=== PATIENT | male | born 1990 | race African-American/Black ===

== ENCOUNTER 2016-12-05 09:09 | Emergency (ER) | payer MEDICAID ==
[2016-12-05 10:03] VITALS: BP 134/77
--- NOTE | 2016-12-05 10:10 | UC ---
Respiratory Complaint HPI - HPI Summary HPI Summary: First starting getting sick with cough and chills (reports fever of 107) 2 weeks ago. Was sick for a week, then felt like he was getting better and went back to work for 2 days and since 3 days ago is feeling much worse again with chills, harsh cough, and night sweats. Denies wheezing or trouble breathing. - History of Current Complaint Chief Complaint: UCRespiratory Stated Complaint: SINUS ISSUE CONGESTION Time Seen by Provider: 12/05/16 10:00 Hx Obtained From: Patient Onset/Duration: Gradual Onset, Lasting Weeks Timing: Constant Severity Initially: Moderate Severity Currently: Moderate Character: Cough: Nonproductive Aggravating Factors: Deep Breaths Alleviating Factors: Upright Position Associated Signs And Symptoms: Positive: Chills, Nasal Congestion. Negative: Hemoptysis - Allergies/Home Medications Allergies/Adverse Reactions: Allergies Allergy/AdvReac Type Severity Reaction Status Date / Time No Known Allergies Allergy Verified 12/05/16 09:53 PMH/Surg Hx/FS Hx/Imm Hx Previously Healthy: Yes - Surgical History Surgical History: None - Family History Known Family History: Positive: None - Social History Occupation: Employed Full-time Alcohol Use: Rare Alcohol Amount: 6PK BEER Substance Use Type: None Substance Use Comment - Amount & Last Used: occassionally Smoking Status (MU): Light Every Day Tobacco Smoker Type: Cigars Household Exposure Type: Cigars - Immunization History Most Recent Influenza Vaccination: 2013 Most Recent Tetanus Shot: patient unsure Review of Systems Constitutional: Chills Skin: Negative Eyes: Negative ENT: Negative Respiratory: Cough Cardiovascular: Negative Gastrointestinal: Negative Genitourinary: Negative Motor: Negative Neurovascular: Negative Musculoskeletal: Negative Neurological: Negative Psychological: Negative All Other Systems Reviewed And Are Negative: Yes Physical Exam Triage Information Reviewed: Yes Appearance: Well-Appearing, No Pain Distress, Well-Nourished Vital Signs: Initial Vital Signs Temp 99.7 F 12/05/16 09:48 Pulse Ox 100 12/05/16 09:48 Vital Signs Reviewed: Yes Eye Exam: Normal Eyes: Positive: Conjunctiva Clear ENT: Positive: Hearing grossly normal, Nasal congestion, TMs normal Dental Exam: Normal Neck exam: Normal Neck: Positive: Supple, Nontender, No Lymphadenopathy Respiratory Exam: Other - freq dry cough Respiratory: Positive: Lungs clear, Normal breath sounds, No respiratory distress Cardiovascular Exam: Normal Cardiovascular: Positive: RRR, No Murmur Musculoskeletal Exam: Normal Neurological Exam: Normal Psychological Exam: Normal Skin Exam: Normal UC Diagnostic Evaluation - Laboratory O2 Sat by Pulse Oximetry: 100 Respiratory Course/Dx - Differential Dx/Diagnosis Provider Diagnoses: Acute bronchitis with secondary bacterial bronchitis Discharge - Discharge Plan Condition: Stable Disposition: HOME Prescriptions: Albuterol HFA INHALER* [Ventolin HFA Inhaler*] 1 - 2 puff INH Q4H PRN #1 mdi PRN Reason: wheeze, cough Azithromycin TAB* [Zithromax TAB*] 250 mg PO SEE INSTRUCTIONS #6 tab Benzonatate CAP* [Tessalon CAP*] 100 mg PO TID #30 cap Patient Education Materials: Acute Bronchitis (ED) Forms: *Work Release Referrals: Edmar Santos MD [Primary Care Provider] - Additional Instructions: Though the vast majority of bronchitis is viral, the course of your illness is suspicious for a bacterial complication, which is why I am treating you with an antibiotic. Increase your fluid intake. A cool mist humidifier may make your lungs more comfortable. An expectorant (cough medicine that loosens phlegm) can help. If you smoke, STOP!!! Recovery from bronchitis can be somewhat slow, but you should not have any significant worsening or new fevers. As long as you can breathe easily and you continue to have steady improvement, it is not important how many days it takes you to get better. Call or return if you develop increasing fever, shortness of breath, chest pain , bloody sputum, or otherwise worsen. If you have not improved at all after several days, contact your primary care physician or return here.
--- NOTE | 2016-12-05 10:35 | RAD ---
INDICATION: Cough. Chills. Fever. COMPARISON: None TECHNIQUE: PA and lateral dual-energy views were obtained. FINDINGS: Bones/Soft Tissues: There are no acute bony findings. Cardiomediastinal: The cardiomediastinal silhouette is normal. Lungs: There are no infiltrates. Pleura: There are no pleural effusions. Other: None IMPRESSION: NORMAL CHEST.
== END 2016-12-05 11:10 | disposition home or self-care (01) ==
LOC: UCEAST 09:09
DX: J20.8 Acute bronchitis due to other specified organisms (principal); F17.290 Nicotine dependence, other tobacco product, uncomplicated
CPT/HCPCS: 71020; 99212; G0463

== ENCOUNTER → 2017-04-24 17:40 | Emergency (ER) | payer MEDICAID, OTHER ==
[~2017-04-24 17:40] MED LIST: Penicillin VK TAB* 250 MG PO ONE
[2017-04-24 17:47] VITALS: BP 130/84
--- NOTE | 2017-04-24 18:27 | ED ---
Throat Pain/Nasal Congestion - HPI Summary HPI Summary: 27M presents with dental pain that has gotten worst over the past couple days. He states he had dental work on the other side and was suppose to have the teeth that are hurting him removed then but they forgot. He has been in contact with his dentist to try and get an appointment to get the teeth removed. He states he had a filling at tooth 20 but that it fell out a month ago. He states over the past couple days he has noticed some swelling to the area. He denies any fever, chest pain, SOB, or difficulty swallowing. He denies any recent antibiotic usage. He has been using ibuprofen for his pain. - History of Current Complaint Chief Complaint: EDDentalPain Time Seen by Provider: 04/24/17 17:55 - Allergies/Home Medications Allergies/Adverse Reactions: Allergies Allergy/AdvReac Type Severity Reaction Status Date / Time No Known Allergies Allergy Verified 12/05/16 09:53 PMH/Surg Hx/FS Hx/Imm Hx Endocrine/Hematology History: Denies: Hx Anticoagulant Therapy Cardiovascular History: Denies: Hx Hypertension Psychiatric History: Denies: Hx Eating Disorder, Hx of Violent Episodes Against Others Infectious Disease History: No Infectious Disease History: Denies: Hx Clostridium Difficile, Hx Hepatitis, Hx Human Immunodeficiency Virus (HIV), Hx of Known/Suspected MRSA, Hx Shingles, Hx Tuberculosis, Hx Known/ Suspected VRE, Hx Known/Suspected VRSA, History Other Infectious Disease, Traveled Outside the [place] in Last 30 Days - Family History Known Family History: Positive: None Negative: Cardiac Disease - Social History Alcohol Use: Occasionally Alcohol Amount: 6PK BEER Hx Substance Use: Yes Substance Use Type: Reports: Marijuana Substance Use Comment - Amount & Last Used: 3 days Smoking Status (MU): Light Every Day Tobacco Smoker Type: Cigars Review of Systems Negative: Fever Positive: Dental Pain Negative: Chest Pain Negative: Shortness Of Breath All Other Systems Reviewed And Are Negative: Yes Physical Exam Triage Information Reviewed: Yes Vital Signs On Initial Exam: Initial Vitals Temp Pulse Resp BP Pulse Ox 98.6 F 67 18 130/84 100 04/24/17 17:44 04/24/17 17:44 04/24/17 17:44 04/24/17 17:44 04/24/17 17:44 Vital Signs Reviewed: Yes Appearance: Positive: Well-Appearing Skin: Positive: Warm, Dry Head/Face: Positive: Normal Head/Face Inspection Eyes: Positive: Normal, EOMI, DANIELA, Conjunctiva Clear ENT: Positive: Normal ENT inspection, Pharynx normal, TMs normal Dental: Positive: Percussion Tenderness @ - 17 and 20, Gross Decay/Caries @ - 17 and 20, Dental Fracture @ - 20 Neck: Positive: Supple, Nontender, No Lymphadenopathy Respiratory/Lung Sounds: Positive: Clear to Auscultation, Breath Sounds Present Cardiovascular: Positive: Normal, RRR - Pamela Coma Scale Coma Scale Total: 15 Diagnostics - Vital Signs Vital Signs Temp Pulse Resp BP Pulse Ox 04/24/17 18:05 98.6 F 67 18 130/84 100 04/24/17 17:44 98.6 F 67 18 130/84 100 - Laboratory Lab Statement: Any lab studies that have been ordered have been reviewed, and results considered in the medical decision making process. EENT Course/Dx - Course Course Of Treatment: 27M presents with dental pain that has gotten worst over the past couple days. He states he had a filling at tooth 20 but that it fell out a month ago. He states over the past couple days he has noticed some swelling to the area. He denies any fever, chest pain, SOB, or difficulty swallowing. on exam tooth 20 and 17 and tender and have cavities present. some swelling noted along jaw line but no definitive abscess felt. no submandibular tenderness. will treat with PCN and told to follow up with dentist. patient understands and agrees with plan. - Differential Diagnoses Differential Diagnoses: Dental Abscess, Dental Caries, Fractured Tooth - Diagnoses Provider Diagnoses: Dental infection Discharge - Discharge Plan Condition: Good Disposition: HOME Prescriptions: Penicillin VK TAB* [Penicillin VK 250 mg Tab*] 500 mg PO QID #27 tab Patient Education Materials: Toothache (ED) Referrals: Edmar Santos MD [Primary Care Provider] - Additional Instructions: Take antibiotics: 4 times a day for 7 days, first dose given in ED Use ibuprofen every 6 hours Avoid hard, crunchy food until seen by dentist Follow up with dentist as soon as possible Return to ED if develop fever, shortness of breath, or chest pain or any new or worsening symptoms Images - Images Dental: 1 - [facility] 2 - fractured
== END | disposition home or self-care (01) ==
LOC: ED 17:40
DX: F12.90 Cannabis use, unspecified, uncomplicated (principal); F17.210 Nicotine dependence, cigarettes, uncomplicated
CPT/HCPCS: 99282; A9270-GY

== ENCOUNTER 2018-03-09 15:08 | Emergency (ER) | payer OTHER ==
[2018-03-09 17:38] VITALS: BP 0/0
== END 2018-03-09 17:38 | disposition left against medical advice (07) ==
LOC: ED 15:08
DX: M54.9 Dorsalgia, unspecified (principal); Z53.21 Procedure and treatment not carried out due to patient leaving prior to being seen by health care provider
CPT/HCPCS: 99282

== ENCOUNTER 2018-09-15 15:29 | Emergency (ER) | payer SELFPAY ==
--- NOTE | 2018-09-15 15:42 | UC ---
Lower Extremity/Ankle HPI - HPI Summary HPI Summary: 28 y/o male presents to the urgent care c/o RT foot pain specially at the base of RT great toe w/ swelling and bruising s/p kicking a desk out of anger last night. Pt report she then went to a club, he was walking then he developed severe great toe pain radiating to his mid foot. he applied ice and took Tylenol PO. this morning when he wake up, his great toe has a lot of swelling and bruising. Pain is 9/10 w/ mild numbness at the base of great toe and decrease ROM. Pa denies fever, SOB, calf pain, abdominal pain, N/v/D., no Hx of previous injury. - History of Current Complaint Stated Complaint: FOOT INJURY Time Seen by Provider: 09/15/18 15:41 Hx Obtained From: Patient Onset/Duration: Sudden Onset, Lasting Days - 1 day, Still Present, Worse Since - today Severity Initially: Severe Severity Currently: Moderate Pain Intensity: 9 Pain Scale Used: 0-10 Numeric Aggravating Factor(s): Standing, Ambulation Alleviating Factor(s): Rest, Elevation, Ice, OTC Meds - tylenol PO Able to Bear Weight: Yes - Risk Factors Gout Risk Factors: Negative DVT Risk Factors: Negative Septic Arthritis Risk Factor: Negative - Allergies/Home Medications Allergies/Adverse Reactions: Allergies Allergy/AdvReac Type Severity Reaction Status Date / Time No Known Allergies Allergy Verified 09/15/18 15:44 PMH/Surg Hx/FS Hx/Imm Hx Previously Healthy: Yes - Pt denies PMHX Other History Of: Negative For: Anticoagulant Therapy - Surgical History Surgical History: None - Family History Known Family History: Positive: Hypertension Negative: Cardiac Disease - Social History Occupation: Employed Full-time Lives: With Family Alcohol Use: Occasionally Alcohol Amount: 6PK BEER Substance Use Type: Marijuana Substance Use Comment - Amount & Last Used: 3 days Smoking Status (MU): Light Every Day Tobacco Smoker Type: Cigars Household Exposure Type: Cigars - Immunization History Most Recent Influenza Vaccination: 2013 Most Recent Tetanus Shot: patient unsure Review of Systems All Other Systems Reviewed And Are Negative: Yes Constitutional: Positive: Negative Skin: Positive: Bruising - w/ swelling at the base of the RT great toe Eyes: Positive: Negative ENT: Positive: Negative Respiratory: Positive: Negative Cardiovascular: Positive: Negative Gastrointestinal: Positive: Negative Genitourinary: Positive: Negative Motor: Positive: Negative Neurovascular: Positive: Negative Musculoskeletal: Positive: Decreased ROM - Rt great toe, Other: - Rt foot pain s /p injury Neurological: Positive: Negative Psychological: Positive: Negative Is Patient Immunocompromised?: No Physical Exam - Summary Physical Exam Summary: Vital Signs Reviewed: Yes General : well developed, well nourished male w/o any apparent distress Eyes: Positive: Conjunctiva Clear - PERRLA, EOMI ENT: Positive: Normal ENT inspection, Hearing grossly normal, Pharynx normal, TMs normal Neck: Positive: Supple, Nontender, No Lymphadenopathy Respiratory: Positive: Chest non-tender, Lungs clear, Normal breath sounds, No respiratory distress Cardiovascular: Positive: RRR, No Murmur, Pulses Normal Abdomen Description: Positive: Nontender, No Organomegaly, Soft. Negative: CVA Tenderness (R), CVA Tenderness (L) Bowel Sounds: Positive: Present Musculoskeletal: RT Foot/Toes: Pt is able to bear weight but ambulate with limping. RT foot : positive soft tissue swelling, bruising and ecchymosis over the Rt first great toe and first MTPJ, no erythema, no lesions, ulcers or break in skin integrity. The R foot is without obvious asymmetry or deformity when compared to the L foot. No bony step-off, tenderness to palpation over the first great toe and and point tenderness over the dorsal side of mid foot. , no tenderness of hindfoot, Decrease plantar/dorsiflexion, inversion/ eversion due to pain. Distal motor and neurovascular status are intact. Neurological Exam: Normal Psychological Exam: Normal Skin Exam: Normal Triage Information Reviewed: Yes Lower Extremity Course/Dx - Course Course Of Treatment: 28 y/o male presents to the urgent care c/o RT foot pain specially at the base of RT great toe w/ swelling and bruising s/p kicking a desk out of anger last night. Pt report she then went to a club, he was walking then he developed severe great toe pain radiating to his mid foot. he applied ice and took Tylenol PO. this morning when he wake up, his great toe has a lot of swelling and bruising. Pain is 9/10 w/ mild numbness at the base of great toe and decrease ROM. Pa denies fever, SOB, calf pain, abdominal pain, N/v/D., no Hx of previous injury. Hx obtained. RT foot X-ray ordered, Impression: grossly nondisplaced oblique sagital fracture of the first proximal phlanx extending to the first MTPJ.no dislocation. Pt's foot immobilized with dex- bandage and given a CAM boot to avoid flexion.Pt is neurovascular intact. Advised RICE, and Rx ibuprofen PO for pain and advised to f/u with Orthopedic DR Gautam for further evaluation and treatment on his fracture. Pt understood and agreed with D/C instructions - Differential Dx/Diagnosis Differential Diagnosis/HQI/PQRI: Arthritis, Contusion, Fracture (Closed), Sprain , Strain, Tendonitis Provider Diagnosis: Fracture of great toe of right foot, Foot pain, right - Physician Notifications Discussed Patient Care With: Júnior Coker - DR coker agreed w/ Pt's plan of care. Discharge - Sign-Out/Discharge Documenting (check all that apply): Patient Departure - d/c home All imaging exams completed and their final reports reviewed: Yes - Discharge Plan Condition: Stable Disposition: HOME Prescriptions: Ibuprofen TAB* [Motrin TAB* 800 MG] 800 mg PO Q6H PRN #30 tab PRN Reason: Pain Patient Education Materials: Toe Fracture (ED) Forms: *Work Release Referrals: Edmar Santos MD [Primary Care Provider] - 2 Days Samaria Gautam MD [Medical Doctor] - 1 Day Additional Instructions: 1-Please take medications after meals as directed to alleviate pain and swelling. 2-Please apply ice, keep your foot immobilized with the Dex bandage and CAM boot. Avoid strenuous exercise or standing for long periods of time. Elevate your foot. 3- Please f/u with Orthopedic Dr Gautam for further evaluation and treatment on your RT great toe fracture. - Billing Disposition and Condition Condition: STABLE Disposition: Home
[2018-09-15 15:44] VITALS: BP 131/75
[2018-09-15] MEDS ORDERED: Ibuprofen TAB* 400 MG PO ONE (15:59)
== END 2018-09-15 16:43 | disposition home or self-care (01) ==
LOC: UCEAST 15:29
DX: S92.414A Nondisplaced fracture of proximal phalanx of right great toe, initial encounter for closed fracture (principal); W22.8XXA Striking against or struck by other objects, initial encounter; Y92.9 Unspecified place or not applicable; F17.290 Nicotine dependence, other tobacco product, uncomplicated
CPT/HCPCS: 99213; A9270-GY; G0463

== ENCOUNTER 2019-06-29 13:48 | Emergency (ER) | payer MEDICAID ==
[2019-06-29 13:58] VITALS: BP 135/82
[2019-06-29] MEDS ORDERED: Ibuprofen TAB* 400 MG PO ONE (14:09)
--- NOTE | 2019-06-29 14:13 | UC ---
UC Dental HPI - HPI Summary HPI Summary: started 2 weeks ago with R lower dental pain, has not seen Dentist today is so painful he "cannot stand it." also notes R facial swelling. has been taking OTC ibuprofen for 2 weeks and no better last dose was yesterday - History of Current Complaint Chief Complaint: UCDentalProblem Stated Complaint: DENTAL PAIN Time Seen by Provider: 06/29/19 13:56 Hx Obtained From: Patient Onset/Duration: Gradual Onset Severity: Severe Pain Intensity: 10 Aggravating Factor(s): Heat, Cold, Chewing Alleviating Factor(s): Nothing - Allergies/Home Medications Allergies/Adverse Reactions: Allergies Allergy/AdvReac Type Severity Reaction Status Date / Time No Known Allergies Allergy Verified 06/29/19 13:58 Home Medications: Home Medications Ibuprofen TAB* [Motrin TAB* 800 MG] 1,000 mg PO Q6H PRN 06/29/19 [History Confirmed 06/29/19] PMH/Surg Hx/FS Hx/Imm Hx Previously Healthy: Yes Other History Of: Negative For: Anticoagulant Therapy - Surgical History Surgical History: None - Family History Known Family History: Positive: None, Hypertension Negative: Cardiac Disease - Social History Occupation: Employed Full-time Lives: With Family Alcohol Use: Occasionally Alcohol Amount: 6PK BEER Substance Use Type: None Substance Use Comment - Amount & Last Used: 3 days Smoking Status (MU): Light Every Day Tobacco Smoker Type: Cigars Household Exposure Type: Cigars Cessation Counseling: Patient Advised to Stop - Immunization History Most Recent Influenza Vaccination: 2013 Most Recent Tetanus Shot: patient unsure Review of Systems All Other Systems Reviewed And Are Negative: Yes Constitutional: Positive: Negative ENT: Positive: Dental Pain Respiratory: Positive: Negative Cardiovascular: Positive: Negative Gastrointestinal: Positive: Negative. Negative: Vomiting, Nausea Neurological: Positive: Negative Psychological: Positive: Negative Is Patient Immunocompromised?: No Physical Exam Triage Information Reviewed: Yes Appearance: Well-Nourished, Pain Distress Vital Signs: Initial Vital Signs Temp 98.7 F 06/29/19 13:55 Pulse 79 06/29/19 13:55 Resp 18 06/29/19 13:55 BP 135/82 06/29/19 13:55 Pulse Ox 100 06/29/19 13:55 Vital Signs Reviewed: Yes ENT Exam: Normal Dental: Positive: Gross Decay/Caries @ - open tex R 3rd molar with swollen surrounding gum, no drainage. Negative: Cervical Lymphadenopathy Respiratory Exam: Normal Respiratory: Positive: Lungs clear Cardiovascular Exam: Normal Cardiovascular: Positive: RRR Psychological Exam: Normal Skin Exam: Normal Dental Complaint Course/Dx - Course Course Of Treatment: Patient is driving himself home - will get Tylenol #3 at pharmacy - Differential Dx/Diagnosis Provider Diagnosis: Dental abscess Discharge ED - Sign-Out/Discharge Documenting (check all that apply): Patient Departure All imaging exams completed and their final reports reviewed: No Studies - Discharge Plan Condition: Stable Disposition: HOME Prescriptions: Acetaminop/Codeine 30 MG TAB* [Tylenol/Codeine 30 MG TAB*] 1 - 2 tab PO Q6H PRN #24 tab MDD 8 PRN Reason: Pain - Severe Penicillin V Potassium 500 mg PO BID #20 tablet Patient Education Materials: Dental Abscess (ED) Forms: *Work Release Referrals: Edmar Santos MD [Primary Care Provider] - Additional Instructions: take ibuprofen 600-800mg every 6-8 hours as needed for pain use Tylenol with codeine as prescribed - do not drink alcohol or drive when using start antibiotic today follow-up with dentist as soon as possible - Billing Disposition and Condition Condition: STABLE Disposition: Home - Attestation Statements Provider Attestation: I was available for consult. This patient was seen by the FRANCIA. The patient was not presented to , seen by or examined by me -Brenda Albrecht MD
== END 2019-06-29 14:23 | disposition home or self-care (01) ==
LOC: UCEAST 13:48
DX: K04.7 Periapical abscess without sinus (principal); F17.210 Nicotine dependence, cigarettes, uncomplicated
CPT/HCPCS: 99212; A9270-GY; G0463

== ENCOUNTER 2019-11-09 12:05 | Emergency (ER) | payer MEDICAID, OTHER ==
[2019-11-09 12:26] VITALS: BP 125/75
[2019-11-09 13:06] LABS: Influenza B Molecular POSITIVE (Negative)
--- NOTE | 2019-11-09 13:10 | UC ---
FLU HPI - HPI Summary HPI Summary: 3 DAYS OF COUGH, CONGESTION, ALVARADO, BODY ACHES, SUBJECTIVE FEVER AND CHILLS. NO FLU SHOT THIS SEASON. - History of Current Complaint Chief Complaint: UCGeneralIllness Stated Complaint: COUGH SINUS ISSUE CHILLS Time Seen by Provider: 11/09/19 12:52 Hx Obtained From: Patient Onset/Duration: Gradual Onset, Lasting Days, Still Present Severity Currently: Moderate Severity Initially: Moderate Pain Intensity: 0 Pain Scale Used: 0-10 Numeric Associated Signs & Symptoms: Positive: Fever, Myalgia, Cough, Nasal Congestion, Headache - Allergy/Home Medications Allergies/Adverse Reactions: Allergies Allergy/AdvReac Type Severity Reaction Status Date / Time No Known Allergies Allergy Verified 11/09/19 12:26 Home Medications: Home Medications Acetaminophen 325 mg PO Q4HR 11/09/19 [History Confirmed 11/09/19] PMH/Surg Hx/FS Hx/Imm Hx Previously Healthy: Yes Other History Of: Negative For: Anticoagulant Therapy - Surgical History Surgical History: None - Family History Known Family History: Positive: None, Hypertension Negative: Cardiac Disease - Social History Alcohol Use: Occasionally Alcohol Amount: 6PK BEER Substance Use Type: None Substance Use Comment - Amount & Last Used: 3 days Smoking Status (MU): Light Every Day Tobacco Smoker Type: Cigars Household Exposure Type: Cigars - Immunization History Most Recent Influenza Vaccination: 2013 Most Recent Tetanus Shot: patient unsure Review of Systems All Other Systems Reviewed And Are Negative: Yes Constitutional: Positive: Fever, Chills, Fatigue ENT: Positive: Nasal Discharge Respiratory: Positive: Cough Cardiovascular: Positive: Negative Gastrointestinal: Positive: Negative Musculoskeletal: Positive: Myalgia Neurological: Positive: Headache Physical Exam Triage Information Reviewed: Yes Appearance: Well-Appearing, No Pain Distress, Well-Nourished Vital Signs: Initial Vital Signs Temp 98.9 F 11/09/19 12:23 Pulse 72 11/09/19 12:23 Resp 18 11/09/19 12:23 BP 125/75 11/09/19 12:23 Pulse Ox 100 11/09/19 12:23 Laboratory Tests 11/09/19 13:03 Influenza B (Rapid) Positive A Vital Signs Reviewed: Yes Eyes: Positive: Conjunctiva Clear ENT: Positive: Hearing grossly normal, Pharynx normal, TMs normal Neck: Positive: Supple, Nontender, No Lymphadenopathy Respiratory Exam: Normal Cardiovascular Exam: Normal Abdomen Description: Positive: Soft Musculoskeletal: Positive: No Edema Neurological: Positive: Alert Psychological: Positive: Age Appropriate Behavior Skin: Negative: Rashes Flu Course/Dx - Course Course Of Treatment: SWAB POSITIVE FOR INFLUENZA B. PATIENT IS OUTSIDE THE WINDOW FOR TAMIFLU. HE IS A HEALTHY PERSON WITH NO CHRONIC UNDERLYING MEDICAL CONDITIONS. WILL MANAGE CONSERVATIVELY WITH REST, HYDRATION, OTC MEDS NEEDED FOR FEVER AND DISCOMFORT. FOLLOW-UP IF NOT IMPROVING EXPECTED. NOTE FOR WORK PROVIDED. - Differential Dx/Diagnosis Provider Diagnosis: Influenza B Discharge ED - Sign-Out/Discharge Documenting (check all that apply): Patient Departure All imaging exams completed and their final reports reviewed: No Studies - Discharge Plan Condition: Stable Disposition: HOME Patient Education Materials: Influenza (ED) Forms: *Work Release Referrals: [facility] [Outside] - If Needed Additional Instructions: SWAB POSITIVE FOR INFLUENZA B. YOU ARE OUTSIDE THE WINDOW FOR TAMIFLU. YOUR SYMPTOMS SHOULD RESOLVE ON THEIR OWN WITH TIME. OTC MEDS NEEDED FOR FEVER, BODY ACHES. STAY WELL HYDRATED AND RESTED. SEEK FOLLOW-UP IF YOU ARE NOT IMPROVING EXPECTED. CALL THE NUMBER BELOW FOR ASSISTANCE IN ESTABLISHING WITH A PCP An additional resource available to assist in finding the appropriate physician for your health care needs is the [facility] ([facility]). You may contact them by calling [phone]. - Billing Disposition and Condition Condition: STABLE Disposition: Home
== END 2019-11-09 13:25 | disposition home or self-care (01) ==
LOC: UCEAST 12:05
DX: J10.1 Influenza due to other identified influenza virus with other respiratory manifestations (principal); F17.290 Nicotine dependence, other tobacco product, uncomplicated
CPT/HCPCS: 99211; G0463